=== PATIENT | female | born 1945 | race Caucasian/White ===

== ENCOUNTER 2017-03-02 07:52 | Day surgery (SDC) | payer OTHER, BC ==
[2017-03-01 11:44] VITALS: BMI 32.9
[2017-03-02] MEDS ORDERED: PROPOFOL 20 ML ONE ×2 (08:44)
[2017-03-02 09:19] VITALS: TEMP 98.4
[2017-03-02 11:05] VITALS: BP 123/72; PULSE 67
--- NOTE | 2017-03-03 12:12 | PATH ---
Surgical Pathology Report Patient Name: BIANCA DYE [facility]. Rec. #: [id number] /Age/Gender: 1945 (Age: 71) / F Account: [id number] Location: U-ENDOSCOPY Taken: 03/02/2017 Received: 03/02/2017 Reported: 03/03/2017 Physicians: Alycia Murrieta M.D. Specimen(s) Received A: BX RECTAL POLYP B: BX DISTAL TRANSVERSE COLON C: BX ANASTOMOSIS Clinical History Preoperative diagnosis: History of colon polyps Postoperative diagnosis: Diverticulosis, patent anastomosis, colon polyps Final Diagnosis A. RECTUM, POLYP, BIOPSY: HYPERPLASTIC POLYP. B. DISTAL TRANSVERSE COLON, POLYP, BIOPSY: TUBULAR ADENOMA. C. COLON, ANASTOMOSIS, BIOPSY: COLONIC MUCOSA WITH PROMINENT LYMPHOID AGGREGATE. Electronically Signed Yanique Chavez M.D. Gross Description A. Received in formalin, labeled "biopsy rectal polyp" is a howell, irregular portion of soft tissue measuring 0.3 cm. in greatest dimension. The specimen is submitted in toto in one cassette. B. Received in formalin, labeled "biopsy distal transverse colon polyp" is a howell, irregular portion of soft tissue measuring 0.3 cm. in greatest dimension. The specimen is submitted in toto in one cassette. C. Received in formalin, labeled "biopsy anastomosis" are 2 howell, irregular portions of soft tissue measuring 0.3 and 0.4 cm. in greatest dimension. The specimens are submitted in toto in one cassette. DL03/02/2017 saudi03/02/2017
== END 2017-03-02 11:00 | disposition home or self-care (01) ==
LOC: JASU-ENDO 07:52
PROVIDERS: ATTEND Internal Medicine Gastroenterology
PROC: 0DBL8ZX Excision of Transverse Colon, Via Natural or Artificial Opening Endoscopic, Diagnostic (ICD-10-PCS; 2017-03-02)
PROC: 0DBP8ZX Excision of Rectum, Via Natural or Artificial Opening Endoscopic, Diagnostic (ICD-10-PCS; 2017-03-02)
PROC: 0DBK8ZX Excision of Ascending Colon, Via Natural or Artificial Opening Endoscopic, Diagnostic (ICD-10-PCS; principal; 2017-03-02 09:00)
DX: Z86.010 Personal history of colon polyps (principal); K62.1 Rectal polyp; K63.5 Polyp of colon; K57.30 Diverticulosis of large intestine without perforation or abscess without bleeding; Z98.0 Intestinal bypass and anastomosis status; Z80.6 Family history of leukemia
CPT/HCPCS: 88305-TC